=== PATIENT | female | born 2000 | race Caucasian/White ===

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

== ENCOUNTER 2022-08-13 21:13 | Observation (INO) | payer BC, SELFPAY ==
[2022-08-13 21:14] VITALS: BP 125/90; PULSE 87; RESP 18; TEMP 36.4; O2SAT 99
--- NOTE | 2022-08-13 21:43 | US_ITS ---
INDICATION: LLQ pain EXAMINATION: Ultrasound US Pelvis Non-OB Complete TECHNIQUE: Transabdominal and transvaginal pelvic ultrasound was performed. Grayscale, spectral waveform, and color flow Doppler evaluation of the adnexa. COMPARISON: None. FINDINGS: UTERUS: Anteverted. The uterus measures 7.5 x 2.5 x 4.0 cm. There is no uterine mass. The endometrial stripe measures 7 mm in AP diameter which is within normal limits. Nabothian cyst. RIGHT OVARY: 4.0 x 2.5 x 3.1 cm. Non-enlarged, normal echogenicity. There is normal arterial inflow and venous outflow present in the right ovary. LEFT OVARY: 5.5 x 2.6 x 3.6 cm. Non-enlarged, normal echogenicity. There is normal arterial inflow and venous outflow present in the left ovary. There is a 19.6 x 10.2 x 14.7 cm septated cystic structure adjacent to the ovary. FREE FLUID: None. Debris is noted in the urinary bladder. US/Pelvic (Non ) IMPRESSION: 1. Complex cystic structure measuring approximately 2.5 L adjacent to the left ovary. This may be related to a much smaller left adnexal cystic structure demonstrated on 01/04/[address] of the pelvis to evaluate malignant potential. 2. Debris in the urinary bladder may be related to infection. Electronically Signed: John Soler MD at 23:18 EDT ,
--- NOTE | 2022-08-13 21:46 | EDS_ITS ---
HPI History of Present Illness Chief Complaint: Abd Pain Informant: patient Narrative Narrative: Patient presents with left lower quadrant pain. She states yesterday she felt fine. This morning she had a little bit of soreness. But then she got all of a sudden an increase in pain at work. After that she has had some nausea and vomiting. Its not back or flank pain. She denies any urinary symptoms. No vaginal discharge or bleeding. She states she has had ovarian cyst and this reminds her of them. She has never had kidney stone. Last menstrual cycle was almost a year ago. She ran out of her control last August and has not had a menstrual cycle since. She states she has a history of not having cycles if she is not regulated on control. She has never had a formal diagnosis of polycystic ovarian syndrome. She denies any intra-abdominal surgeries. Her bowel habits have been normal. No fevers. PFSH PFSH Home Medications NK 08/13/22 [History Last Taken Unknown] Allergy/AdvReac Type Severity Reaction Status Date / Time No Known Allergies Allergy Verified 11/01/20 15:03 Social History Smoking Status: Never smoker ROS ROS ED Constitutional Constitutional ED: Denies chills, fever(s) or subjective ENT ENT ED: Denies rhinorrhea Cardiovascular Cardiovascular: Denies chest pain or palpitations Respiratory/Chest Respiratory/Chest: Denies cough or dyspnea Gastrointestinal Gastrointestinal: Reports abdominal pain, nausea and vomiting; Denies diarrhea or melena Genitourinary Genitourinary ED: Denies dysuria, hematuria or urinary frequency Musculoskeletal Musculoskeletal: Denies back pain or neck pain Integumentary Reports rash Neurologic Neurologic: Denies paresthesias or weakness Hematologic/Lymphatic Hematologic/Lymphatic: Denies easy bleeding or easy bruising Allergic/Immunologic Allergic/Immunologic ED: Denies urticaria EXAM Physical Exam Narrative Exam Narrative: Patient awake alert no acute distress she is holding an empty emesis bag on the bed. She does look a little uncomfortable. HEENT shows minimally dry mucous membranes Eyes show no icterus Neck is supple no JVD voice is normal. Lungs are clear bilaterally and saturations are normal at 99% on room air showing no hypoxia. Heart is regular with rate about 80. No murmur gallop or rub. Abdomen is obese. Bowel sounds seem normal. She does have some tenderness with very low in the left lower quadrant and pelvic area. No rebound or guarding. Really no tenderness elsewhere. : No CVA tenderness. She does have the low left pelvic area tenderness. Extremities show no edema. Const Vital Signs: 08/13/22 21:14 Temperature 97.6 F L Temperature Source Temporal Pulse Rate 87 Respiratory Rate 18 Blood Pressure 125/90 H Blood Pressure Mean 101 Pulse Ox 99 Oxygen Delivery Method Room Air MDM MDM MDM Narrative Medical decision making narrative: My independent interpretation of the patient's ultrasound of the pelvis does show what appears to be a very large cystic structure. Final reading is a cystic structure that is almost 20 cm x 10 cm x 15 cm. Happily, the ovaries do show normal flow to both left and right. This cystic structure is seen near the left ovary. It is larger than what was on the CAT scan from 01/04/2020. Patient CBC is normal including platelets hemoglobin and white count. Patient's electrolytes are normal Patient's urine is negative I have given the patient Zofran which did help her nausea somewhat. We have given her Toradol. This did not help her pain much. We gave her morphine that showed some small improvement. I am now giving a second dose of morphine. She is still having pain. If this second dose does not take effect soon we will try a dose of Dilaudid. I do not think the patient is seeking pain meds. She does not come in here for pain. Her online prescribing report was accessed and shows no prescriptions for controlled substances in the last 2 years. I think she has genuine discomfort. I do not think I will be able to control this in the emergency department. I did discuss the case with cabin furnishings installer, Dr. Kelley. Due to this patient's very significantly large cyst and significant pain she will be admitted. She will likely need surgery. This was explained to the patient. Lab Data Attestation: I reviewed the patient's lab results. Labs: Laboratory Results - last 24 hr 08/13/22 08/13/22 08/13/22 22:00 22:00 22:00 WBC 10.6 RBC 4.67 Hgb 13.3 Hct 42.5 MCV 91.0 MCH 28.5 MCHC 31.3 L RDW Std Deviation 45.1 H RDW Coeff of Werner 13.5 Plt Count 421 MPV 11.8 Immature Gran % (Auto) 0.400 Neut % (Auto) 67.0 Lymph % (Auto) 23.4 Dale % (Auto) 6.9 Eos % (Auto) 1.8 Baso % (Auto) 0.5 Absolute Neuts (auto) 7.1 Absolute Lymphs (auto) 2.49 Nucleated RBC % 0 Sodium 139 Potassium 3.9 Chloride 107 Carbon Dioxide 27.0 Anion Gap 5 BUN 9 Creatinine 0.84 Est GFR (MDRD) Af Amer 111 Est GFR (MDRD) Non-Af 92 BUN/Creatinine Ratio 10.7 Glucose 98 Calcium 9.7 Serum , Qual NEGATIVE Radiography Diagnostic Testing: Clinical Impression(s) from Imaging Studies Pelvis Ultrasound 08/13/22 21:43 IMPRESSION: 1. Complex cystic structure measuring approximately 2.5 L adjacent to the left ovary. This may be related to a much smaller left adnexal cystic structure demonstrated on 01/04/[address] of the pelvis to evaluate malignant potential. 2. Debris in the urinary bladder may be related to infection. Electronically Signed: John Soler MD at 23:18 EDT , Management Discussion w/another healthcare provider: [employer] Reservationist Discharge Plan Triage Chief Complaint: Abd Pain ED Provider: Jovan Latif Dx/Rx/DC Orders Clinical Impression: Ovarian cyst, Intractable pain, Amenorrhea, secondary Prescriptions: No Action NK Primary Care Provider: Rajni Crawford Referrals: Rajni Crawford MD [Primary Care Provider] - Disposition Disposition: Acute Care [facility]
[2022-08-13] MEDS: Ketorolac 15 MG/ML Vial IV (22:02)
[2022-08-13] MEDS: Ondansetron 4 MG/2 ML Vial IV (22:02)
[2022-08-13] MEDS: 0.9% Normal Saline 1,000 ML 1000 ML IV (22:02)
[2022-08-13 22:14] LABS: Absolute Lymphocyte Count 2.49 X10^3/uL (0.83-4.51); Absolute Neutrophil Count 7.1 X10^3/uL (2.0-7.7); Basophil# 0.05 X10^3/uL; Basophil% 0.5 % (0-1); Eosinophil# 0.19 X10^3/uL; Eosinophils% 1.8 % (0-5); Hematocrit 42.5 % (37-47); Hemoglobin 13.3 g/dL (12.0-15.0); Lymphocyte # 2.49 X10^3/ul (0.83-4.51); Lymphocyte % 23.4 % (19-41); Mean Corp Hgb Conc 31.3 g/dL (32-36); Mean Corpuscular Hgb 28.5 pg (27.0-32.0); Mean Platelet Vol. 11.8 fl (6.2-12.0); Monocyte# 0.73 X10^3/uL; Monocyte% 6.9 % (0-10); NRBC Flagged by Analyzer 0 % (0-5); Neutrophil # 7.13 X10^3/uL (2.7-7.7); Platelet Count 421 K/mm3 (150-450); RBC Distribution Width CV 13.5 % (11.6-14.6); RBC Distribution Width SD 45.1 fl (35.1-43.9); Red Blood Count 4.67 M/mm3 (4.2-5.4); White Blood Count 10.6 K/mm3 (4.4-11.0)
[2022-08-13 22:23] LABS: Internal QC Validated? YES +Cl - CLEAR BKGD; Pregnancy, Serum, hCG Quali. NEGATIVE Negative
[2022-08-13 22:25] LABS: Anion Gap 5 (5-15); BUN 9 mg/dL (7-18); BUN/Creat Ratio 10.7 RATIO (10-20); Calcium,Total 9.7 mg/dL (8.5-10.1); Chloride 107 mmol/L (98-107); Creatinine, Serum 0.84 mg/dL (0.55-1.02); EST Glomerular Filtration Rate 92 mL/min (>60); Est Glom Filt Rate - Afr Amer 111 mL/min (>60); Glucose 98 mg/dL (74-106); Potassium 3.9 mmol/L (3.5-5.1); Sodium Level 139 mmol/L (136-145)
[2022-08-13] MEDS: Morphine 4 MG/ML Syringe IV ×2 (23:05→23:35)
[2022-08-13 23:36] VITALS: BMI 43.2
[2022-08-13 23:47] VITALS: BP 149/92; PULSE 67; RESP 18; TEMP 36.8; O2SAT 97
[2022-08-14] VITALS (10 sets, daily range): BP systolic 98–152; BP diastolic 52–91; PULSE 71–94; RESP 16–18; TEMP 36.3–37.1; O2SAT 93–100; BMI 41.3
[2022-08-14] MEDS: HYDROmorphone 0.5 MG/0.5 ML SYRINGE IV
--- NOTE | 2022-08-14 | FLU_PTH ---
PATIENT: STEPHANIE LANIER LOC: MS3 U#:[id number] AGE/SX: 21/F ROOM: MS324 RE08/13/[address]: Dr. Pat Kelley MD : 2000 BED: 1 DIS: 08/14/2022 SPEC #: [id number] RECD: 08/14/22 09:30 STATUS: SADIE CARTY #: [id number] PAUL: 08/14/22 00:[address]: Pat Kelley DEPT: CYTOLOGY RECD BY: Ezio Joy ENTERED: 08/14/22 09:51 SP TYPE: Fluid OTHR DR: Dr. Rajni Crawford MD Tissues: Pelvis, NOS Procedures: Special Stain Group II Surgery Specimen Level IV Cytospin Fluid HEADER OPERATION: Laparoscopic left salpingo-oophorectomy PRE-OP DIAGNOSIS: Complex ovarian adnexal mass TISSUE SUBMITTED: Adnexal mass fluid for cytology DIAGNOSIS CYTOLOGY Fine needle aspiration, adnexal mass (cytospin and cell block): Negative for malignant cells. See comment. AM:citlalli 08/17/2022 COMMENT Please correlate with corresponding surgical case ([id number]). CYTOLOGY STUDY Slides are reviewed. CYTOLOGY GROSS Received is 40 ml of reddish-orange cloudy fluid labeled with the patient's name and and designated per the requisition as adnexal mass. Submitted for cytology preparation including cell block. / citlalli 08/14/2022 TC:5 CPT: 61191, 78761
--- NOTE | 2022-08-14 | FALS_PTH ---
PATIENT: STEPHANIE LANIER LOC: MS3 U#:[id number] AGE/SX: 21/F ROOM: MS324 RE08/13/[address]: Dr. Pat Kelley MD : 2000 BED: 1 DIS: 08/14/2022 SPEC #: [id number] RECD: 08/14/22 09:30 STATUS: SADIE CARTY #: [id number] PAUL: 08/14/22 00:[address]: Pat Kelley DEPT: SURGICAL PATHOLOGY RECD BY: Ezio Joy ENTERED: 08/14/22 09:51 SP TYPE: FALL TUBES OTHR DR: Dr. 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 AM:citlalli 08/17/2022 COMMENT Case has been reviewed in consultation with Dr. Tillman who concurs with the above diagnosis. IDC:FRANCO MICROSCOPIC DESCRIPTION Slides are reviewed. GROSS DESCRIPTION Received in fixative is one container labeled with the patient's name and designated left ovary and fallopian tube. The specimen consists of a fallopian tube and soft to cystic ovary. The soft to cystic ovary is received in multiple pieces. The fallopian tube is present over the largest piece of soft to cystic ovary and it is interrupted. The fallopian tube measures 12.0 cm and up to 0.7 cm in diameter. It is interrupted in the middle. The fallopian tube is adherent to the portion of cystic ovary. The fimbrial end is identified and it is hemorrhagic. The largest piece of cystic ovary measures 9.0 x 7.0 x 2.0 cm. The second largest piece shows focal, solid area and measures 8.0 x 3.5 x 4.0 cm. The smaller pieces measure in aggregate 6.0 x 3.0 x 2.0 cm. The ovarian pieces weigh in aggregate 110 gm. The largest piece predominantly consists of cystic portion of the ovary and shows outer smooth surface without any papillation. The inner cyst wall is congested and hemorrhagic. No papillations are identified in this inner cyst wall. The cyst wall measures up to 0.2 cm in thickness. Sections of the second largest piece reveal multiple hemorrhagic cysts. The largest hemorrhagic cyst measures 2.0 cm in greatest dimension. [place] [employer] sections are submitted in six cassettes as follows: 1 - fallopian tube, 2 & 3 - largest piece consisting of cyst, 4 & 5 - second largest piece, 6 - smaller pieces. / SJ:citlalli 08/14/2022 TC:1 CPT: 07050
[2022-08-14] MEDS: HYDROmorphone 1 MG/ML Syringe IV ×4 (01:28→11:09)
[2022-08-14] MEDS: Ondansetron 4 MG/2 ML Vial IV (01:29)
[2022-08-14] MEDS: Lactated Ringers 1,000 ML 150 ML IV (01:34)
--- NOTE | 2022-08-14 05:15 | PCM.HP.OB ---
HPI - General General Date of Admission: 08/13/22 HPI Narrative STEPHANIE LANIER, is a 21 F who presents with acute LLQ pain and diagnosed in ED with large 20 cm complex cystic adnexal mass. she had a 9 cm lesion seen in the ovary in 2019 and didn't have follow up, has irregular menses, LMP 1 year ago. she denies any vaginla bleeding or discharge, hasn't had follow up with an obgyn about this. PFSH PFS Medical History (Updated 08/14/22 @ 05:[address] Pat Kelley MD) Asthma Scoliosis Home Medications NK 08/13/22 [History Last Taken Unknown] Allergy/AdvReac Type Severity Reaction Status Date / Time No Known Allergies Allergy Verified 11/01/20 15:03 Social History Smoking Status: Never smoker ROS Constitutional Constitutional: Reports systems reviewed and no addt'l complaints, except as documented; Denies as per HPI, change in weight, fatigue, fever(s), malaise, weakness or other Eyes Eyes: Reports systems reviewed and no addt'l complaints, except as documented; Denies as per HPI, change in vision or other ENT HEENT: Reports systems reviewed and no addt'l complaints, except as documented Respiratory/Chest Respiratory/Chest: Reports systems reviewed and no addt'l complaints, except as documented Gastrointestinal Gastrointestinal: Reports systems reviewed and no addt'l complaints, except as documented and as per HPI Genitourinary Genitourinary: Reports as per HPI Musculoskeletal Musculoskeletal: Reports systems reviewed and no addt'l complaints, except as documented Neurologic Neurologic: Reports systems reviewed and no addt'l complaints, except as documented Psychiatric Psychiatric: Reports systems reviewed and no addt'l complaints, except as documented Endocrine Endocrinology: Reports systems reviewed and no addt'l complaints, except as documented Hematologic/Lymphatic Hematologic/Lymphatic: Reports systems reviewed and no addt'l complaints, except as documented Vital Signs Vital Signs Vital Signs: 08/13/22 21:14 08/13/22 23:47 08/14/22 01:04 Temperature 97.6 F L 98.3 F 97.8 F Temperature Source Temporal Oral Oral Pulse Rate 87 67 94 Respiratory Rate 18 18 18 Respiratory Effort Respiratory Depth Respiratory Pattern Blood Pressure 125/90 H 149/92 H 148/81 H Blood Pressure Mean 101 111 103 Blood Pressure Source Monitor Blood Pressure Position Sitting Blood Pressure Location Right Arm Pulse Ox 99 97 97 Oxygen Delivery Method Room Air Room Air Room Air 08/14/22 01:41 08/14/22 01:44 Temperature 97.8 F Temperature Source Oral Pulse Rate 94 Respiratory Rate 18 Respiratory Effort Normal Non-Labored Respiratory Depth Normal Respiratory Pattern Normal Blood Pressure 148/81 H Blood Pressure Mean 103 Blood Pressure Source Blood Pressure Position Blood Pressure Location Pulse Ox 97 Oxygen Delivery Method Room Air Room Air Weight Weight: 273 lb 2.444 oz Body Mass Index (BMI) 41.3 Physical Exam Const alert, oriented x3 and no apparent distress HEENT normocephalic Head and Scalp: atraumatic Eyes EOMs intact bilaterally and conjunctivae normal Neck full ROM, no lymphadenopathy, supple and thyroid normal General: trachea midline Lymph Lymphatic: no lymphadenopathy noted Resp normal respiratory effort, no retractions, no use of accessory muscles and clear to auscultation bilaterally Cardio regular rhythm GI normal to inspection, nondistended, normoactive bowel sounds and soft to palpation GI Narrative: tender no rebound, difficult to palpate underlying mass due to body habitus Inspection: Negative for abdominal distention Back/Spine no CVA tenderness Extremity normal to inspection Skin no rashes or lesions noted Neuro moves all extremities and deep tendon reflexes 2+ bilaterally Psych mental status grossly normal Labs Labs Labs: Hct 40.5 % (37-47) Hgb 13.0 g/dL (12.0-15.0) Assessment & Plan (1) Amenorrhea, secondary: COMMENT: hcg ordered (2) Intractable pain: COMMENT: admit and proceed with surgery (3) Ovarian cyst: COMMENT: 20 cm left complex, has been there since 2020, 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 I have discussed with the patient the risks, benefits, and alternatives of the procedure which include but are not limited to risks of anesthesia, bleeding, infection, possible damage to bowel, bladder, or surrounding vasculature which could lead to additional surgery to evaluate any complications. Patient agrees to procedure and wishes to proceed. ACOG/uptodate references given for additional information regarding procedure.
[2022-08-14] MEDS: proCHLORPERazine 10 MG/2 ML Vial IV (05:46)
[2022-08-14 05:48] LABS: Absolute Lymphocyte Count 1.72 X10^3/uL (0.83-4.51); Absolute Neutrophil Count 10.2 X10^3/uL (2.0-7.7); Basophil# 0.05 X10^3/uL; Basophil% 0.4 % (0-1); Eosinophil# 0.01 X10^3/uL; Eosinophils% 0.1 % (0-5); Hematocrit 40.5 % (37-47); Lymphocyte # 1.72 X10^3/ul (0.83-4.51); Lymphocyte % 13.6 % (19-41); Mean Corp Hgb Conc 32.1 g/dL (32-36); Mean Corpuscular Hgb 28.9 pg (27.0-32.0); Mean Platelet Vol. 11.3 fl (6.2-12.0); Monocyte% 4.7 % (0-10); NRBC Flagged by Analyzer 0 % (0-5); Neutrophil # 10.22 X10^3/uL (2.7-7.7); Neutrophil % 80.8 % (47-70); Platelet Count 429 K/mm3 (150-450); RBC Distribution Width CV 13.4 % (11.6-14.6); RBC Distribution Width SD 44.1 fl (35.1-43.9); White Blood Count 12.7 K/mm3 (4.4-11.0)
[2022-08-14 06:25] LABS: hCG Titer Quant., Serum < 1 mIU/mL (1-3)
--- NOTE | 2022-08-14 07:08 | OP.PCM_ITS ---
Report of Operation Date of Procedure: 08/14/22 Pre-Operative Diagnosis: see problem list Post-Operative Diagnosis: same Surgery/Procedure Performed:: laparoscopic left salpingo-oophorectomy Description of Surgical Findings:: Enlarged left multicystic ovary with partial torsion of part of the ovary and torsion of the tube with blunting and enlarged hydropic appearance of the fallopian tube normal right tube and ovary Surgeon: Pat Kelley aircraft ordnance systems mechanic: Nereida Chand Type of Anesthesia: General and Local Special Medications: none Specimen's removed: Left tube and ovary Drains: none Estimated Blood Loss (mL): 50 Fluids Replaced: crystalloid Description of Procedure: Patient was taken in the operating room and was placed under general anesthesia was prepped and draped in normal sterile fashion in the dorsal lithotomy position. Bladder was drained of clear urine and SCDs were on preoperatively. Uterus was sounded and a uterine manipulator was placed after dilating. Attention was then paid to the abdominal portion of the procedure and the umbilicus was elevated with towel clamps and injected with Marcaine and after a 12 mm incision was made and the Veress needle was entered into the abdomen confirmed to be intra-abdominal with a low opening pressure of less than 5 mmHg. Abdomen was insufflated with CO2 gas and a 5 mm optical trocar was placed under direct visualization. A right 12 and left lower quadrant 5 mm ports were placed under direct visualization. large left ovarian cyst on the ovary was seen with a partial torsion of part of the cyst. The cyst was drained in multiple places in order to reduce the volume enough to be able to operate and it was after partial drainage that the partial torsion was noted. Some part of the ovary was not torsed but the complex cystic portion was including the fallopian tube which was noted to be enlarged and nonfunctional in appearance. The fallopian tube was completely elongated and attached to the adnexal tumor. Cystectomy was then attempted to remove it off of the normal ovarian tissue. However as dissection was accomplished the remaining part of the ovary was noted to be significantly abnormal in appearance both polycystic as well as other areas that were suspicious for remaining complex cystic tumor and therefore the risk for recurrence was considered to be high enough that the decision to remove the entire remaining ovary was made. After transecting the IP ligament and the utero-ovarian ligament and fallopian tube proximately the ovary and cyst and tube were placed into a bag. fascial incision was enlarged in the right lower quadrant to allow removal of the ovary which was taken out in pieces through the back. The fascial incision was closed directly from the external incision with a running stitch of 0 Vicryl.. Liver and upper abdomen were visualized notably within normal limits and no other gross abnormalities were seen in the abdomen. All instruments removed from the abdomen after gas was desufflated. Port sites were closed with 3-0 Monocryl Steri's and op sites were applied. All instruments removed from the vagina and patient was awoken and taken recovery in stable condition. Grafts/Implants Used: none Complications none Admit VTE Documentation VTE Present on Admission: No VTE Mechan Device Prophylaxis: SCD's Multi Select Codes Urinary/Genital Urinary/Genital CPT Codes: 76970 Laproscopic BS/O
--- NOTE | 2022-08-14 07:20 | DCINST_ITS ---
Discharge Instructions Diet Discharge Diet: No restrictions Activity Discharge Activity: Return to Normal Activity, May Drive, May Shower and May Take a Tub Bath (in 4 weeks) May resume sexual activity in: 6-8 weeks (after seen by OB provider) Weight Bearing Status: Full weight bearing Lifting Restrictions: none Dressing / Incision Call your doctor if you observe: Fever of 101 or Higher, Inability to urinate, Using more than 1 pad per hour (for more than 2 hours in a row or more), Shortness of breath, Dizziness, Chest pain and - (headache not controlled with tylenol, change in vision) Follow Up Care When: in 6 weeks for visit, call the office to make the appointment. If you had elevated blood pressures call the office to be seen within 1 week. Test Results: Test results from this visit will be discussed in further detail at your follow- up appointment, if applicable. Discharge Plan Admission Admit Date/Time: 08/13/22 23:40 Attending Provider: Pat Kelley Primary Care Provider: Rajni Crawford Discharge Orders/Prescriptions Prescriptions: New oxycodone-acetaminophen [Percocet] 5-325 mg tablet 1 tab PO Q6H PRN (Reason: pain) 7 Days Qty: 20 0RF naproxen [naproxen] 500 mg tablet 500 mg PO BID PRN PRN (Reason: Pain) Qty: 30 1RF Referrals / Follow Up: Rajni Crawford MD [Primary Care Provider] -
[2022-08-14] MEDS: Bupivacaine 0.25% 30 ML Vial (07:40)
[2022-08-14] MEDS: 0.9% Saline Lock 10 ML Syringe IV (11:09)
--- NOTE | 2022-08-14 12:38 | DCINST_ITS ---
Discharge Instructions Diet Discharge Diet: No restrictions Activity Discharge Activity: Return to Normal Activity, May Drive (when pain free) and May Shower May resume sexual activity in: 1 week Weight Bearing Status: Full weight bearing Lifting Restrictions: 30 lbs for 2 weeks Dressing / Incision Call your doctor if your incision/area has: Continuous Slow Oozing, Sudden Increased Bleeding, Increased Pain/ Swelling, Increased Redness and Foul Smelling Discharge Call your doctor if you observe: Fever of 101 or Higher, Using more than 1 pad per hour, Shortness of breath, Chest pain and Uncontrolled pain Suture Line Care: Avoid Pulling/Pushing and Avoid Pinching/Bending Remove Dressing in: 1 week (if present) Cleanse incision/area with: Soap & Water and Keep Dressing Clean & Dry Follow Up Care Please Follow Up With: Pat Kelley MD When: Call to make an appointment with your doctor for a postop visit in 2 weeks Test Results: Test results from this visit will be discussed in further detail at your follow- up appointment, if applicable. Discharge Plan Admission Admit Date/Time: 08/13/22 23:40 Attending Provider: Pat Kelley Primary Care Provider: Rajni Crawford Discharge Orders/Prescriptions Prescriptions: New oxycodone-acetaminophen [Percocet] 5-325 mg tablet 1 tab PO Q6H PRN (Reason: pain) 7 Days Qty: 20 0RF naproxen [naproxen] 500 mg tablet 500 mg PO BID PRN PRN (Reason: Pain) Qty: 30 1RF Referrals / Follow Up: Rajni Crawford MD [Primary Care Provider] - Disposition Disposition (needs filled in before D/C Order can be placed): Home, Self Care
[2022-08-14] MEDS: oxyCODONE 5 MG Tablet PO (15:19)
[2022-08-18 10:11] LABS: Cytology, Body Fluid / CSF SEE PATHOLOGY REPORT
== END 2022-08-14 16:16 | disposition home or self-care (01) ==
LOC: ED 23:46 → MS3 23:50
PROVIDERS: Admitting Provider Obstetrics & Gynecology; Emergency Provider Emergency Medicine; PCP Pediatrics; Visit Provider Obstetrics & Gynecology
PROC: (CPT 58661; principal; 2022-08-14 07:00)
DX: N83.292 Other ovarian cyst, left side (principal); R11.2 Nausea with vomiting, unspecified; N83.53 Torsion of ovary, ovarian pedicle and fallopian tube
CPT/HCPCS: 58661; 00840; 36415; 76856; 80048; 84702; 84703; 85025; 88108; 88302; 88305; 88307; 88313; 96361; 96374; 96375; 96376; 99221; 99284; J7030; J7120; A4216; G0378; J2405